=== PATIENT | female | born 1980 | race Caucasian/White ===

== ENCOUNTER → 2017-05-28 10:42 | Outpatient (CLI) | payer OTHER, SELFPAY ==
--- NOTE | 2017-05-28 10:45 | CT_ITS ---
STUDY: CT MAXILLOFACIAL SINUSES REASON FOR EXAM: Female, 36 years old. Sinusitis and right maxillary pain RADIATION DOSAGE (If Supplied By Facility): CTDIvol = ( 33.06 ) mGy, DLP = ( 887.57 ) mGycm TECHNIQUE: The patient was scanned in a multi detector CT scanner. High resolution axial imaging was performed without the administration of intravenous contrast material. Sagittal and coronal images were reconstructed. Individualized dose optimization techniques were used for this CT. COMPARISON: None. FINDINGS: FRONTAL SINUSES: Normal aeration, without mucosal inflammatory disease. ETHMOIDAL SINUSES: Normal aeration, without mucosal inflammatory disease. MAXILLARY SINUSES: Cyst in the inferior right maxillary sinus. Underlying mucocele cannot be excluded. There is focal cortical interruption of the medial upper anterior maxilla as seen on image 61 of series 4. Erosive changes are noted involving the roots of the right maxillary teeth with adjacent lytic/cystic changes of the maxillary alveolus. SPHENOIDAL SINUSES: Normal aeration, without mucosal inflammatory disease. There is patency of the bilateral maxillary infundibuli with normal uncinate processes, ethmoid bullae, and hiatus semilunaris. Normal bilateral middle turbinates. Normal bilateral inferior turbinates. Normal midline nasal septum. There is patency of the bilateral nasal airways. The visualized osseous structures are normal. The visualized bilateral orbital contents are normal. CT/Sinus/Facial Bone IMPRESSION: Right maxillary sinus disease with associated anterior maxillary cortical interruption and lytic/cystic changes of the alveolus and right maxillary tooth roots. Underlying mucocele or dentigerous cystic disease may be present. Electronically Signed: Petar Noble MD at 4:02 EST Tel , Service support ,
== END ==
PROVIDERS: Visit Provider Otolaryngology
DX: J32.0 Chronic maxillary sinusitis (principal); J34.1 Cyst and mucocele of nose and nasal sinus
CPT/HCPCS: 70486

== ENCOUNTER → 2017-09-14 12:19 | Outpatient (CLI) | payer OTHER, SELFPAY ==
--- NOTE | 2017-09-14 | TISS_PTH ---
PATIENT: CASSIUS TAMEZ LOC: [facility] U#:[id number] AGE/SX: 44/F ROOM: RE09/14/[address]: Dr. Alber Patricia DDS : 1980 BED: DIS: SPEC #: [id number] RECD: 09/14/17 11:55 STATUS: AMY CODIE #: [id number] MALLY: 09/14/17 00:[address]: Alber Patricia DEPT: SURGICAL PATHOLOGY RECD BY: Sean Aguirre ENTERED: 09/14/17 13:11 SP TYPE: Tissue Bx OT DR: No Primary Care Phys Tissues: Maxilla, NOS Procedures: Surgery Specimen Level IV HEADER OPERATION: Biopsy right maxillary sinus PRE-OP DIAGNOSIS: Probable odontogenic cyst TISSUE SUBMITTED: Right maxilla MICROSCOPIC DIAGNOSIS Right maxilla, biopsy: Benign cyst lined by respiratory epithelium and adjacent soft tissue and bone with reactive changes. Negative for malignancy. SJ:janina 09/15/17 COMMENT Correlation with clinical, radiologic findings and appropriate follow up are necessary. Please make reference to corresponding cytology ([id number]). Case has been reviewed in consultation with Dr. Cedeno who concurs with the above diagnosis. IDC:AM MICROSCOPIC DESCRIPTION Slides are reviewed. GROSS DESCRIPTION Received in fixative is one container labeled with the patient's name and designated right maxilla. The specimen consists of an irregular piece of cutler-pink soft tissue measuring 1.5 x 1 x 0.2 cm. The entire specimen is submitted in one cassette. / SJ:rg 09/14/17 TC:5 CPT: 67251
--- NOTE | 2017-09-14 | FLU_PTH ---
PATIENT: CASSIUS TAMEZ LOC: [facility] U#:[id number] AGE/SX: 44/F ROOM: RE09/14/[address]: Dr. Alber Patricia DDS : 1980 BED: DIS: SPEC #: [id number] RECD: 09/14/17 11:55 STATUS: AMY MACKAY #: [id number] MALLY: 09/14/17 00:[address]: Alber Patricia DEPT: CYTOLOGY RECD BY: Sean Aguirre ENTERED: 09/14/17 13:13 SP TYPE: Fluid OTHR DR: No Primary Care Phys Tissues: Maxilla, NOS Procedures: Pap Stain (control) Special Stain Group II Surgery Specimen Level IV Cell Block Cytospin Fluid HEADER OPERATION: Right maxillary sinus biopsy PRE-OP DIAGNOSIS: Probable odontogenic cyst TISSUE SUBMITTED: Right maxilla cyst fluid for cytology DIAGNOSIS CYTOLOGY Right maxilla cyst fluid for cytology (cytospin and cell block): Consistent with benign cyst contents. SJ:janina 09/15/17 COMMENT Please make reference to corresponding surgical specimen [id number]. CYTOLOGY STUDY Slides are reviewed. The specimen entirely consists of macrophages. CYTOLOGY GROSS Received is 8 ml of anjana cloudy fluid labeled with the patient's name and and designated per the requisition as right maxilla. Submitted for cytology preparation including cell block. / 09/14/17 TC:5 CPT: 27224, 67677
== END ==
PROVIDERS: Visit Provider Dentist Oral and Maxillofacial Surgery
DX: M27.40 Unspecified cyst of jaw (principal)
CPT/HCPCS: 88108; 88305; 88313

== ENCOUNTER → 2018-01-03 10:27 | Outpatient (CLI) | payer OTHER, SELFPAY ==
[2018-01-03 11:38] LABS: Absolute Lymphocyte Count 1.94 X10^3/ul (0.83-4.51); Absolute Neutrophil Count 2.4 X10^3/uL (2.0-7.7); Basophil# 0.04 X10^3/uL; Basophil% 0.8 % (0-1); Eosinophil# 0.17 X10^3/uL; Eosinophils% 3.5 % (0-5); Hematocrit 41.3 % (37-47); Hemoglobin 14.4 g/dl (12.0-15.0); Lymphocyte # 1.94 X10^3/ul (4.0); Lymphocyte % 39.4 % (19-41); Mean Corp Hgb Conc 34.9 g/gl (32-36); Mean Corpuscular Hgb 32.4 pg (27.0-32.0); Mean Platelet Vol. 9.7 fl (6.2-12.0); Monocyte# 0.36 X10^3/uL; Monocyte% 7.3 % (0-10); Neutrophil % 48.8 % (47-70); Platelet Count 217 K/mm3 (150-450); Red Blood Count 4.44 M/mm3 (4.2-5.4); White Blood Count 4.9 K/mm3 (4.4-11.0)
[2018-01-03 11:41] LABS: POSITIVE COUNT NO; POSITIVE DIFFERENTIAL NO; POSITIVE MORPHOLOGY NO
[2018-01-03 12:16] LABS: hCG Titer Quant., Serum < 1 mIU/mL (<9 non-preg)
[2018-01-03 12:26] LABS: AST(SGOT) 15 U/L (15-37); Alanine Aminotransfer ALT/SGPT 20 U/L (13-56); Cholesterol 151 mg/dL (200); High Density Lipoprotein 70 mg/dL; Triglycerides 75 mg/dL; Very Low Density Lipoprotein 15 mg/dL (5-40)
== END ==
PROVIDERS: Family Provider Internal Medicine; PCP Internal Medicine; Visit Provider Dermatology
DX: L70.0 Acne vulgaris (principal); Z79.899 Other long term (current) drug therapy
CPT/HCPCS: 36415; 80061; 84450; 84460; 84702; 85025

== ENCOUNTER → 2018-02-06 10:07 | Outpatient (CLI) | payer OTHER, SELFPAY ==
[2018-02-06 11:25] LABS: Internal QC Validated? YES +Cl - CLEAR BKGD; Pregnancy, Urine Negative Negative
== END ==
PROVIDERS: Family Provider Internal Medicine; PCP Internal Medicine; Referring Provider Dermatology; Visit Provider Dermatology
DX: Z79.899 Other long term (current) drug therapy (principal)
CPT/HCPCS: 81025

== ENCOUNTER → 2018-03-07 11:00 | Outpatient (CLI) | payer OTHER, SELFPAY ==
[2015-08-12 14:00] VITALS: BMI 22.1
[2018-03-07 11:22] LABS: Internal QC Validated? YES +Cl - CLEAR BKGD; Pregnancy, Urine Negative Negative
== END ==
PROVIDERS: Family Provider Internal Medicine; PCP Internal Medicine; Referring Provider Dermatology; Visit Provider Dermatology
DX: L70.0 Acne vulgaris (principal); L23.3 Allergic contact dermatitis due to drugs in contact with skin; Z79.899 Other long term (current) drug therapy
CPT/HCPCS: 81025

== ENCOUNTER 2018-03-24 12:32 | Day surgery (SDC) | payer OTHER, SELFPAY ==
[2015-08-12 14:00] VITALS: BMI 22.1
[2018-03-24] VITALS (9 sets, daily range): BP systolic 109–125; BP diastolic 76–90; PULSE 67–103; RESP 16–18; TEMP 36.1–37.3; O2SAT 97–100; BMI 24.1
[2018-03-24 12:57] LABS: Internal QC Validated? YES +Cl - CLEAR BKGD; Pregnancy, Urine Negative Negative
[2018-03-24 13:08] LABS: Hematocrit 41.2 % (37-47); Hemoglobin 14.4 g/dl (12.0-15.0); Mean Corpuscular Hgb 32.3 pg (27.0-32.0); Mean Corpuscular Volume 92.4 fL (81-99); Mean Platelet Vol. 9.2 fl (6.2-12.0); Platelet Count 275 K/mm3 (150-450); RBC Distribution Width CV 12.7 % (11.6-14.6); RBC Distribution Width SD 42.4 fl (35.1-43.9); Red Blood Count 4.46 M/mm3 (4.2-5.4); Scan Indicated on CBC? Y/N NO; White Blood Count 5.8 K/mm3 (4.4-11.0)
--- NOTE | 2018-03-24 14:00 | TISS_PTH ---
PATIENT: CASSIUS TAMEZ LOC: [facility] [place] U#:[id number] AGE/SX: 37/F ROOM: RE03/24/[address]: Dr. Alber Patricia DDS : 1980 BED: DIS: 03/24/2018 SPEC #: [id number] RECD: 03/27/18 09:05 STATUS: AMY CODIE #: [id number] MALLY: 03/24/18 14:[address]: Alber Patricia DEPT: SURGICAL PATHOLOGY RECD BY: Brooks Roper ENTERED: 03/27/18 12:49 SP TYPE: Tissue Bx MICHAEL DR: Dr. Rosalva Chand MD Tissues: TISSUE SURGICALLY REMOVED Procedures: Surgery Specimen Level IV HEADER OPERATION: Excision cyst/tumor, maxilla PRE-OP DIAGNOSIS: Benign cyst invading right maxilla TISSUE SUBMITTED: Right maxilla cyst MICROSCOPIC DIAGNOSIS Right maxilla cyst, biopsy: Consistent with benign cyst lined by respiratory epithelium with associated reactive changes and chronic inflammation and bone. SJ:janina 03/28/18 COMMENT Please make reference to previous specimen ([id number]) right maxilla, biopsy with diagnosis of benign cyst lined by respiratory epithelium and adjacent soft tissue and bone with reactive changes. This case is discussed with Dr. Patricia on 03/28/18. Case has been reviewed in consultation with Dr. Cedeno who concurs with the above diagnosis. IDC:AM MICROSCOPIC DESCRIPTION Slides are reviewed. GROSS DESCRIPTION Received in fixative is one container labeled with the patient's name and designated right maxilla cyst. The specimen consists of multiple irregular fragments of dark cutler soft tissue that in aggregate measure 2 x 1.5 x 0.2 cm. The specimen is totally submitted in one cassette. / AM:janina 03/27/18 TC:5 CPT: 94591
[2018-03-24] MEDS: Bupivacaine 0.5% PF 10 ML VIAL (15:05)
--- NOTE | 2018-03-24 16:12 | PCM.OPRPT ---
Problem List (1) Cyst of maxilla Status: Acute Report of Operation Date of Procedure: 03/24/18 Pre-Operative Diagnosis: Right maxillary cyst Post-Operative Diagnosis: Same Surgery/Procedure Performed:: Excision cyst right maxilla Description of Surgical Findings:: The patient was identified in the pre-op hod room and the discussion of the procedure was gone over with her and her . All questions were answered. The patient was taken to the OR and placed into the supine position. All anesthesia monitors were placed and the patient was induced under general anesthesia. She was intubated without complications. The patient was then prepped and drapped in the usual manner for oral/maxillofacial surgery. Lidocaine mixed with arcaine was administered as local anesthesia. A vestibular incision was made through mucosa down to and through periosteum. Using a surgical handpiece bone was removed from the lateral wall of the sinus cavity exposing the cystic lesion in the right maxilla. The destruction of the bone from the cyst went posteriorly about at the level of the first and second molar maybe a little further and superiorly and medially into the maxillary sinus. and anteriorly up to the cuspid tooth. Using rongeurs, bone curretts and rotary instrumentation with care not to destroy the roots of the right maxilla the cystic lesion was debrided from the bone. Copious irrigation with normal saline and closure with 3-0 chromic was done. The throat pack was removed and the oral cavity and hypopharyngeal tissues suctioned free of debri. Bleeding was well controlled and all needle and sponge counts correct. Taken to Post anesthesia recovery in stable condition. Type of Anesthesia:: General Specimen's removed: Cystic tissue right maxilla Drains: none Estimated Blood Loss (mL): 20 cc
[2018-03-24] MEDS: HYDROcodone Bitartrate/Apap 5/325 Tablet PO (18:05)
== END 2018-03-24 18:50 | disposition home or self-care (01) ==
LOC: SDC 12:33 → AC 12:34
PROVIDERS: Family Provider Internal Medicine; PCP Internal Medicine; Referring Provider Dentist Oral and Maxillofacial Surgery; Visit Provider Dentist Oral and Maxillofacial Surgery
PROC: (CPT 21030; principal; 2018-03-24 13:45)
DX: M27.40 Unspecified cyst of jaw (principal); Z79.899 Other long term (current) drug therapy
CPT/HCPCS: 00190; 21030; 81025; 85027; 88305; J7120; J2405

== ENCOUNTER → 2018-04-12 10:10 | Outpatient (CLI) | payer OTHER, SELFPAY ==
[2018-03-24 13:12] VITALS: BMI 24.1
[2018-04-12 11:01] LABS: Internal QC Validated? YES +Cl - CLEAR BKGD; Pregnancy, Urine Negative Negative
== END ==
PROVIDERS: Family Provider Internal Medicine; PCP Internal Medicine; Referring Provider Dermatology; Visit Provider Dermatology
DX: Z79.899 Other long term (current) drug therapy (principal); L70.0 Acne vulgaris; L23.3 Allergic contact dermatitis due to drugs in contact with skin
CPT/HCPCS: 81025

== ENCOUNTER → 2018-05-08 09:40 | Outpatient (CLI) | payer OTHER, SELFPAY ==
[2018-03-24 13:12] VITALS: BMI 24.1
[2018-05-08 12:00] LABS: Pregnancy, Serum, hCG Quali. NEGATIVE Negative (0-9 Nonpreg)
[2018-05-08 12:06] LABS: AST(SGOT) 16 U/L (15-37); Alanine Aminotransfer ALT/SGPT 19 U/L (13-56); Cholesterol 155 mg/dL (200); High Density Lipoprotein 46 mg/dL; Triglycerides 133 mg/dL; Very Low Density Lipoprotein 27 mg/dL (5-40)
--- OUTSIDE RECORDS SUMMARY | 2018-07-10 19:45 | XMS RPT_ITS ---
:1980 Author Organization [place] Support Name Relationship Address Phone MASON BARBOSA Unavailable Unavailable + [place] [address] LUCAS TAMEZ Unavailable [address] + [place] [address] UE Unavailable Unavailable Unavailable MASON BARBOSA Unavailable Unavailable + [place] [address] LUCAS TAMEZ Unavailable [address] + [place] [address] UE Unavailable Unavailable Unavailable MASON BARBOSA Unavailable Unavailable + [place] [address] LUCAS TAMEZ Unavailable [address] + [place] [address] UE Unavailable Unavailable Unavailable MASON BARBOSA Unavailable Unavailable + [place] [address] LUCAS TAMEZ Unavailable [address] + [place] [address] UE Unavailable Unavailable Unavailable MASON BARBOSA Unavailable Unavailable + [place] [address] LUCAS TAMEZ Unavailable [address] + [place] [address] UE Unavailable Unavailable Unavailable MASON BARBOSA Unavailable Unavailable + [place] [address] LUCAS TAMEZ Unavailable [address] + [place] [address] UE Unavailable Unavailable Unavailable MASON BARBOSA Unavailable Unavailable + [place] [address] LUCAS TAMEZ Unavailable [address] + [place] [address] UE Unavailable Unavailable Unavailable FAMILIA, MASON Unavailable . + [place] [address] LUCAS TAMEZ Unavailable [address] + [place] [address] UE Unavailable Unavailable Unavailable Care Team Providers Name Role Phone SULEMA DHALIWAL (GEOCHEMICAL MANAGER) Attending Unavailable GANTA, ROSALVA Attending Unavailable GANTA, ROSALVA Referring Unavailable RYJESS SPENCER ([facility]) Attending Unavailable Freddy, Victor Manuel Attending Unavailable Freddy, Victor Manuel Referring Unavailable Ganta, Rosalva Primary Care Unavailable FreddyVictor Manuel Attending Unavailable Freddy, Victor Manuel Referring Unavailable Ganta, Rosalva Primary Care Unavailable Wartmann, Live Attending Unavailable Wartmann, Live Referring Unavailable Primay Care Physicia, No Primary Care Unavailable Fiorita, Vincent Attending Unavailable Primay Care Physicia, No Primary Care Unavailable Fiorita, Vincent Referring Unavailable Freddy, Victor Manuel Attending Unavailable Freddy, Victor Manuel Referring Unavailable Ganta, Rosalva Primary Care Unavailable Victor Manuel Hayes Attending Unavailable Freddy, Victor Manuel Referring Unavailable Ganta, Rosalva Primary Care Unavailable FreddyVictor Manuel Attending Unavailable Freddy, Victor Manuel Referring Unavailable Ganta, Rosalva Primary Care Unavailable Fiorita, Vincent Attending Unavailable Fiorita, Vincent Referring Unavailable Ganta, Rosalva Primary Care Unavailable PROBLEMS PROBLEMS DATE TYPE CONDITION / CODE ATTENDING STATUS SOURCE 05/08/2018 Unknown Z79.899 - Other Victor Manuel Hayes Active [facility]current[facility] drug Hospital therapy / Repository Z79.899(ICD-10) 03/07/2018 Unknown L70.0 - Acne Victor Manuel Hayes Active [facility] vulgaris / Community L70.0(ICD-10) Hospital Repository 03/07/2018 Unknown L23.3 - Allergic Victor Manuel Hayes Active [facility] contact Community dermatitis due to Hospital drugs in contact Repository with skin / L23.3(ICD-10) 12/08/2017 Active Encounter for NA Active [facility] screening [facility] [place] mammogram for Repository malignant neoplasm of breast / Z12.31(ICD-10) 12/08/2017 Active Family history of NA Active [facility] malignant [facility] [place] neoplasm of Repository breast / Z80.3(ICD-10) PROCEDURES PROCEDURES No Procedure Records FoundRESULTS RESULTS ,SERUM,HCG QUALI. Collected: Status: F Source: [place]ERT 05/08/2018 9:[address] [facility] REPOSITORY TYPE CODE TESTS RESULT OUT OF REFERENCE UNITS RANGE LAB L700.7000 0-9 Nonpreg Negative Normal HCGSQUAL NEGATIVE LAB L700.6700 =>Qualitative mIU/mL Normal HCG Qual < 1 triggr Performed By: #### L700.6800 #### [facility] [address] [place], [address] LIPID PROFILE Collected: 05/08/2018 Status: F Source: ROBERT 9:[address] [facility] REPOSITORY TYPE CODE TESTS RESULT OUT OF RANGE REFERENCE UNITS LAB L501.4900 200 mg/dL Normal CHOL 155 Result Comment: <200 mg/dL Desirable 200-240 mg/dL Borderline >240 mg/dL High Risk LAB L501.5000 mg/dL Normal TRIG 133 Result Comment: The drugs N-Acetylcysteine and Metamizole may falsely depress this assay. Serum Triglycerides Reference Interval Normal <150 mg/dL Borderline high 150 - 199 mg/dL High 200 - 499 mg/dL Very High > or = 500 mg/dL LAB L501.6400 mg/dL Normal HDL 46 Result Comment: The drugs N-Acetylcysteine and Metamizole may falsely depress this assay. Reference Range HDL <40 mg/dL Low HDL Cholesterol HDL >or= 60 mg/dL High HDL Cholesterol LAB L501.6500 0-130 mg/dL Normal LDL 82 LAB L501.6600 5-40 mg/dL Normal VLDL 27 Performed By: #### L500.4100, L501.4100, L501.4405 #### [facility] [address] [place], [address] AST(SGOT) Collected: 05/08/2018 Status: F Source: [place] 9:[address] [facility] REPOSITORY TYPE CODE TESTS RESULT OUT OF RANGE REFERENCE UNITS LAB L501.4100 15-37 U/L Normal AST 16 Performed By: #### L500.4100, L501.4100, L501.4405 #### [facility] [address] [place], [address] ALANINE AMINOTRANSFERAS Collected: 05/08/2018 Status: F Source: ROBERT (SGPT) 9:[address] [facility] REPOSITORY TYPE CODE TESTS RESULT OUT OF RANGE REFERENCE UNITS LAB L501.4405 13-56 U/L Normal ALT 19 Performed By: #### L500.4100, L501.4100, L501.4405 #### [facility] [address] [facility] [place], [address] ,URINE Collected: 04/12/2018 Status: F Source: ROBERT 10:[address] [facility] REPOSITORY TYPE CODE TESTS RESULT OUT OF REFERENCE UNITS RANGE LAB L400.8000 Negative Normal HCGUQUAL Negative Result Comment: Very dilute urine specimens, as indicated by a low specific gravity, may not contain termite control service representative levels of hCG. If is still suspected, a first morning urine specimen should be collected 48 hours later and tested. Performed By: #### L400.7600 #### [facility] [address] [facility] [place], [address] OPERATIVE REPORT Observed: 03/24/2018 Status: F Source: ROBERT 4:[address] [facility] REPOSITORY [facility] Medical Records Department [address] [place] [address] Operative Report 03/24/18 1612 MR#: [id number] Acct: [id number] Name: CATHERINE TAMEZ Rep #: [id number] : 1980 37 From: Alber Patricia DDS PCP: Rosalva Ordoñez MD Status: [facility] Location: [place] [address] Problem List (1) Cyst of maxilla Status: Acute Report of Operation Date of Procedure: 03/24/18 Pre-Operative Diagnosis: Right maxillary cyst Post-Operative Diagnosis: Same Surgery/Procedure Performed:: Excision cyst right maxilla Description of Surgical Findings:: The patient was identified in the pre-op hod room and the discussion of the procedure was gone over with her and her . All questions were answered. The patient was taken to the OR and placed into the supine position. All anesthesia monitors were placed and the patient was induced under general anesthesia. She was intubated without complications. The patient was then prepped and drapped in the usual manner for oral/maxillofacial surgery. Lidocaine mixed with arcaine was administered as local anesthesia. A vestibular incision was made through mucosa down to and through periosteum. Using a surgical handpiece bone was removed from the lateral wall of the sinus cavity exposing the cystic lesion in the right maxilla. The destruction of the bone from the cyst went posteriorly about at the level of the first and second molar maybe a little further and superiorly and medially into the maxillary sinus. and anteriorly up to the cuspid tooth. Using rongeurs, bone curretts and rotary instrumentation with care not to destroy the roots of the right maxilla the cystic lesion was debrided from the bone. Copious irrigation with normal saline and closure with 3-0 chromic was done. The throat pack was removed and the oral cavity and hypopharyngeal tissues suctioned free of debri. Bleeding was well controlled and all needle and sponge counts correct. Taken to Post anesthesia recovery in stable condition. Type of Anesthesia:: General Specimen's removed: Cystic tissue right maxilla Drains: none Estimated Blood Loss (mL): 20 cc 03/24/18 1625 <Electronically signed by Alber Patricia DDS> Date Alber Patricia DDS CC: Rosalva Ordoñez MD; Alber Patricia DDS Signed TISSUE BIOPSY Observed: 03/24/2018 Status: F Source: ROBERT 2:[address] [facility] REPOSITORY Patient: CATHERINE TAMEZ : 1980 (37/F) Acct Num: [id number] Phys: Alber Patricia DDS Unit Num: [id number] Loc: [facility] Specimen: [id number] Received: 03/27/18904 Spec Type: Tissue Bx TISSUES 1 TISSUES: TISSUE SURGICALLY REMOVED COMMENT Please make reference to previous specimen ([id number]) right maxilla, biopsy with diagnosis of benign cyst lined by respiratory epithelium and adjacent soft tissue and bone with reactive changes. This case is discussed with Dr. Patricia on 03/28/18. Case has been reviewed in consultation with Dr. Cedeno who concurs with the above diagnosis. IDC:AM GROSS DESCRIPTION Received in fixative is one container labeled with the patient's name and designated right maxilla cyst. The specimen consists of multiple irregular fragments of dark cutler soft tissue that in aggregate measure 2 x 1.5 x 0.2 cm. The specimen is totally submitted in one cassette. / AM:janina 03/27/18 TC:5 CPT: 68034 HEADER OPERATION: Excision cyst/tumor, maxilla PRE-OP DIAGNOSIS: Benign cyst invading right maxilla TISSUE SUBMITTED: Right maxilla cyst MICROSCOPIC DESCRIPTION Slides are reviewed. MICROSCOPIC DIAGNOSIS Right maxilla cyst, biopsy: Consistent with benign cyst lined by respiratory epithelium with associated reactive changes and chronic inflammation and bone. SJ:janina 03/28/18 Signed Pedro Jon 03/28/18 <signature on file> Performed By: #### PTISS #### [facility] [address] [facility] [place], [place], [address] ,URINE Collected: 03/24/2018 Status: F Source: [place] 12:[address] [facility] REPOSITORY Order Comment: Reason for Laboratory Test PREOP TYPE CODE TESTS RESULT OUT OF REFERENCE UNITS RANGE LAB L400.8000 Negative Normal HCGUQUAL Negative Result Comment: Very dilute urine specimens, as indicated by a low specific gravity, may not contain termite control service representative levels of hCG. If is still suspected, a first morning urine specimen should be collected 48 hours later and tested. Performed By: #### L400.7600 #### [facility] [address] [place], [address] CBC-COMPLETE BLOOD CNT Collected: 03/24/2018 Status: F Source: [place] NO DIFF 12:[address] [facility] REPOSITORY Order Comment: Reason for Laboratory Test PREOP TYPE CODE TESTS RESULT OUT OF RANGE REFERENCE UNITS LAB L100.1000 4.4-11.0 K/mm3 Normal WBC 5.8 LAB L100.1200 4.2-5.4 M/mm3 Normal RBC 4.46 LAB L100.1300 12.0-15.0 g/dl Normal HGB 14.4 LAB L100.1400 37-47 % Normal HCT 41.2 LAB L100.1500 81-99 fL Normal MCV 92.4 LAB L100.1600 27.0-32.0 pg High MCH 32.3 LAB L100.1700 32-36 g/gl Normal MCHC 35.0 LAB L100.1810 11.6-14.6 % Normal RDW CV 12.7 LAB L100.1820 35.1-43.9 fl Normal RDW SD 42.4 LAB L100.1900 150-450 K/mm3 Normal PLT 275 LAB L100.2000 6.2-12.0 fl Normal MPV 9.2 Performed By: #### L100.0500 #### [facility] [address] [facility] [place], [address] ,URINE Collected: 03/07/2018 Status: F Source: [place] 11:[address] [facility] REPOSITORY TYPE CODE TESTS RESULT OUT OF REFERENCE UNITS RANGE LAB L400.8000 Negative Normal HCGUQUAL Negative Result Comment: Very dilute urine specimens, as indicated by a low specific gravity, may not contain termite control service representative levels of hCG. If is still suspected, a first morning urine specimen should be collected 48 hours later and tested. Performed By: #### L400.7600 #### [facility] [address] [facility] [place], [place], [address] Observed: 02/10/2018 Status: F Source: [place] BACT/CAND VAG GRM ST 10:15 AM [facility] REPOSITORY Sp. Request/Comment: - Swab Smear Result - BACTERIAL VAGINOSIS RESULT: Stain results consistent with normal vaginal willem. Moderate --> ABNORMAL ALERT Yeast --> ABNORMAL ALERT Few Polymorphonuclear leukocytes Performed By: #### BVCNSM #### [facility] [address] [place], [place] [address] PROGRESS Observed: 02/10/2018 Status: COMPLETED Source: [place] 9:42 AM [facility] REPOSITORY HNO ID: [id number] Author: Jess De La O) Ry Service: (none) Author Type: Nurse Practitioner Type: Progress Notes Filed: 02/10/2018 12:12 PM Note Text: Catherine Tamez is a 37 year old female who presents for vaginal pruritis and discharge for 2 week(s) off and on. She had some left of Diflucan that she use and seem to get better but then started up again and took another Diflucan then yesterday she started with the symptoms again Vaginal discharge: moderate amount, thick and white. Itching: YES Dyspareunia: YES Fever/chills: No Abdominal pain: No Bladder: Negative for dysuria or frequency Bowel: No blood in stool, pain with BM, tarry stool, persistent diarrhea or constipation Any new sexual partners or concern for STD exposure: No Any history of STDs: None Does your partner have any new complaints: No Are you currently taking any medications to treat vaginitis: Yes, Tried Diflucan Do you use feminine sprays, douches or deodorants: No Past medical, surgical, social history, medications and allergies reviewed and updated. OBJECTIVE: Wt 150 lb 9.6 oz (68.3kg) LMP 01/18/2018 GENERAL: Well developed, well nourished in no apparent distress ABDOMEN: soft, non-tender and no masses PELVIC: external genitalia normal, normal Bartholin's glands, urethra, [place]'s glands, no vulvar lesions, no cervical lesions, good vaginal support, normal appearing perineal body and perianal region, well estrogenized, abnormal discharge white yeast like +vaginal opening and wall are red and inflamed in appearance. BIMANUAL: uterus normal size, shape and consistency, no adnexal masses, non-tender and no cervical motion tenderness. RECTOVAGINAL: deferred. ASSESSMENT/PLAN: Christina Office Visit on 02/10/18 -isotretinoin (ACCUTANE ORAL) STD screening: Declined STD check. Any new medications given to the patient have been explained as to directions, reasons for prescribing and side effects. Perineal hygeine and safe sex were discussed with the patient. B/O BV-negative BVC sent Diflucan sent Will call if s/s are not resolving Jess Raza APRN.GEOCHEMICAL MANAGER CNOV Observed: 02/10/2018 Status: COMPLETED Source: [place] 9:30 AM [facility] REPOSITORY Office Visit (WOOB) CATHERINE TAMEZ ([id number]) 1980 F Date Time Provider Department 02/10/18 9:30 AM JESS RAZA ([facility]) WOOB During your visit today, we recorded the following information about you: Blood pressure Weight Last Period 100/60 68.3 kg 01/18/18 Jess Raza APRN.CNP 02/10/2018 12:12 PM Signed Catherine Tamez is a 37 year old female who presents for vaginal pruritis and discharge for 2 week(s) off and on. She had some left of Diflucan that she use and seem to get better but then started up again and took another Diflucan then yesterday she started with the symptoms again Vaginal discharge: moderate amount, thick and white. Itching: YES Dyspareunia: YES Fever/chills: No Abdominal pain: No Bladder: Negative for dysuria or frequency Bowel: No blood in stool, pain with BM, tarry stool, persistent diarrhea or constipation Any new sexual partners or concern for STD exposure: No Any history of STDs: None Does your partner have any new complaints: No Are you currently taking any medications to treat vaginitis: Yes, Tried Diflucan Do you use feminine sprays, douches or deodorants: No Past medical, surgical, social history, medications and allergies reviewed and updated. OBJECTIVE: Wt 150 lb 9.6 oz (68.3kg) LMP 01/18/2018 GENERAL: Well developed, well nourished in no apparent distress ABDOMEN: soft, non-tender and no masses PELVIC: external genitalia normal, normal Bartholin's glands, urethra, [place]'s glands, no vulvar lesions, no cervical lesions, good vaginal support, normal appearing perineal body and perianal region, well estrogenized, abnormal discharge white yeast like +vaginal opening and wall are red and inflamed in appearance. BIMANUAL: uterus normal size, shape and consistency, no adnexal masses, non-tender and no cervical motion tenderness. RECTOVAGINAL: deferred. ASSESSMENT/PLAN: Christina Office Visit on 02/10/18 -isotretinoin (ACCUTANE ORAL) STD screening: Declined STD check. Any new medications given to the patient have been explained as to directions, reasons for prescribing and side effects. Perineal hygeine and safe sex were discussed with the patient. B/O BV-negative BVC sent Diflucan sent Will call if s/s are not resolving Jess Raza APRN.GEOCHEMICAL MANAGER Referring Provider: SELF [200] Allergies As of Date: 02/10/2018 (No Known Allergies) Date Reviewed: 02/10/2018 Reviewed by: Iza Curry LPN - Fully Assessed Reason for Visit: vaginitis [Other] Primary Visit Diagnosis:Vaginal irritation [N89.8] Order(s):RAPID BV B/O [8578568] Order #: [id number] BACT/CHRISTINA VAG GRAM STAIN [SQBVCNSM] Order #: [id number] FUTURE fluconazole (DIFLUCAN) 150 mg tabletTake 1 tablet by mouth one time only for 1 dose. Then repeat in 72 hours.Disp: 2 tabletRfl: 0 Prescriptions as of 02/10/2018 Sig: ACCUTANE ORAL Take by mouth once daily. 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 History of maternal third degree perineal lacer*INVALID FOR*08/22/2015 More... History of anesthesia complications [Z87.898] INVALID FOR*08/22/2015 More... Rubella non-immune status [Z78.9] INVALID FOR*08/22/2015 Supervision of other normal [Z34.80] INVALID FOR*08/22/2015 More... Prescriptions ordered this encounter Disp Refills Start End FLUCONAZOLE 150 MG TABLET 2 ta* 0 02/10/2018 02/10/2018 Route: ORAL Sig: Take 1 tablet by mouth one time only for 1 dose. Then repeat in 72 hours. Medications Discontinued During This Encounter Drospirenone-Ethinyl Estradiol (EFREN * 3 Pa* 0 08/19/2017 02/10/2018 Route: ORAL Sig: Take 1 tablet by mouth once daily. Patient not taking: Reported on 02/10/2018 Disc: Reason for discontinue is not on file. traMADol (ULTRAM) 50 mg tablet 20 t* 0 04/29/2016 02/10/2018 Class: Call Rx Route: ORAL Sig: Take 1 tablet by mouth every 8 hours as needed. Patient not taking: Reported on 02/10/2018 Disc: Reason for discontinue is not on file. Encounter Status:Closed by JESS RAZA on 02/10/18 ,URINE Collected: 02/06/2018 Status: F Source: [place] 10:[address] [facility] REPOSITORY Order Comment: Date of Last Menstrual Period? 01/27/18 TYPE CODE TESTS RESULT OUT OF REFERENCE UNITS RANGE LAB L400.8000 Negative Normal HCGUQUAL Negative Result Comment: Very dilute urine specimens, as indicated by a low specific gravity, may not contain termite control service representative levels of hCG. If is still suspected, a first morning urine specimen should be collected 48 hours later and tested. Performed By: #### L400.7600 #### [facility] [address] [place], [place] [address], [address] CBC W/DIFF, AUTOMATED Collected: 01/03/2018 Status: F Source: [place] 10:[address] [facility] REPOSITORY TYPE CODE TESTS RESULT OUT OF RANGE REFERENCE UNITS LAB L100.1000 4.4-11.0 K/mm3 Normal WBC 4.9 LAB L100.1200 4.2-5.4 M/mm3 Normal RBC 4.44 LAB L100.1300 12.0-15.0 g/dl Normal HGB 14.4 LAB L100.1400 37-47 % Normal HCT 41.3 LAB L100.1500 81-99 fL Normal MCV 93.0 LAB L100.1600 27.0-32.0 pg High MCH 32.4 LAB L100.1700 32-36 g/gl Normal MCHC 34.9 LAB L100.1810 11.6-14.6 % Normal RDW CV 13.0 LAB L100.1820 35.1-43.9 fl Normal RDW SD 43.0 LAB L100.1900 150-450 K/mm3 Normal PLT 217 LAB L100.2000 6.2-12.0 fl Normal MPV 9.7 LAB L100.2100 47-70 % Normal NEUT% 48.8 LAB L100.2200 19-41 % Normal LY% 39.4 LAB L100.2300 0-10 % Normal MONO% 7.3 LAB L100.2400 0-5 % Normal EO% 3.5 LAB L100.2500 0-1 % Normal BASO% 0.8 LAB L100.2550 0.0-0.9 % Normal IM GRAN % 0.200 Result Comment: IG% - Immature Granulocytes (promyelocytes, myelocytes and metamyelocytes) > 1% indicates that a LEFT SHIFT is Present. LAB L100.2620 2.0-7.7 X10 3/uL Normal Absolute Neut 2.4 LAB L100.2720 0.83-4.51 X10 3/ul Normal Absolute Lymph 1.94 Performed By: #### L100.0100 #### [facility] [address] [place], [address] HCG TITER QUANT., Collected: 01/03/2018 Status: F Source: [place] SERUM 10:[address] [facility] REPOSITORY TYPE CODE TESTS RESULT OUT OF RANGE REFERENCE UNITS LAB L700.8000 <9 non-preg mIU/mL Normal HCG < 1 QUANT. Performed By: #### L700.8000 #### [facility] [address] [place], [address] LIPID PROFILE Collected: 01/03/2018 Status: F Source: [place] 10:[address] [facility] REPOSITORY TYPE CODE TESTS RESULT OUT OF RANGE REFERENCE UNITS LAB L501.4900 200 mg/dL Normal CHOL 151 Result Comment: <200 mg/dL Desirable 200-240 mg/dL Borderline >240 mg/dL High Risk LAB L501.5000 mg/dL Normal TRIG 75 Result Comment: The drugs N-Acetylcysteine and Metamizole may falsely depress this assay. Serum Triglycerides Reference Interval Normal <150 mg/dL Borderline high 150 - 199 mg/dL High 200 - 499 mg/dL Very High > or = 500 mg/dL LAB L501.6400 mg/dL Normal HDL 70 Result Comment: The drugs N-Acetylcysteine and Metamizole may falsely depress this assay. Reference Range HDL <40 mg/dL Low HDL Cholesterol HDL >or= 60 mg/dL High HDL Cholesterol LAB L501.6500 0-130 mg/dL Normal LDL 66 LAB L501.6600 5-40 mg/dL Normal VLDL 15 Performed By: #### L500.4100, L501.4100, L501.4405 #### [facility] [address] [place], [address] AST(SGOT) Collected: 01/03/2018 Status: F Source: [place] 10:[address] [facility] REPOSITORY TYPE CODE TESTS RESULT OUT OF RANGE REFERENCE UNITS LAB L501.4100 15-37 U/L Normal AST 15 Performed By: #### L500.4100, L501.4100, L501.4405 #### [facility] [address] [place], [address] ALANINE AMINOTRANSFERAS Collected: 01/03/2018 Status: F Source: [place] (SGPT) 10:[address] [facility] REPOSITORY TYPE CODE TESTS RESULT OUT OF RANGE REFERENCE UNITS LAB L501.4405 13-56 U/L Normal ALT 20 Performed By: #### L500.4100, L501.4100, L501.4405 #### [facility] [address] [place], [address] CNCO Observed: 12/08/2017 Status: COMPLETED Source: [place] 11:33 AM [facility] REPOSITORY HNO ID: [id number] Author: Mammography Coordinator Service: (none) Author Type: Physician Type: Letter Filed: 12/12/2017 11:31 PM Note Text: December 08, 2017 PID: [id number] Catherine Tamez [address] [place] [address] Dear Ms. Tamez, We are pleased to inform you that the results of your recent breast imaging exam on 12/08/2017 are normal. Your mammogram demonstrates that you have dense breast tissue, which could hide abnormalities. Dense breast tissue, in and of itself, is a relatively common condition. Therefore, this information is not provided to cause undue concern; rather, it is to raise your awareness and promote discussion with your health care provider regarding the presence of dense breast tissue in addition to other risk factors. Early detection of cancer is very important. We also understand recommendations regarding breast cancer screening are controversial. Please discuss with your primary care provider which strategy is best for you and whether a mammogram is right for you. Your imaging studies and report will be kept on file at [facility] as part of your permanent medical record and are available for your continuing care. Thank you for allowing us to help in meeting your health care needs. Sincerely, Dr. Eric Interpreting Radiologist [facility] (Normal over 40) [facility] SCREENING Observed: 12/08/2017 Status: F Source: [place] 11:21 AM [facility] REPOSITORY * * *Final Report* * * DATE OF EXAM: Dec 08 2017 11:21AM [facility] [id number] - [facility] SCREENING / PROCEDURE REASON: multiple diagnoses * * * * Physician Interpretation * * * * RESULT: #[id number] - [facility] SCREENING BILATERAL DIGITAL SCREENING MAMMOGRAM WITH CAD: 12/08/2017 HISTORY: Screening Mammogram - patient reports NO breast symptoms /baseline mammogram. RESULT: TECHNIQUE: The study was acquired using full field digital technology and interpreted from soft copy. Current study was also evaluated with a Computer Aided Detection (CAD). There are no prior films available for comparison. This is considered a new baseline examination. The tissue of both breasts is heterogeneously dense. This may lower the sensitivity of mammography. No significant masses, calcifications, or other findings are seen in either breast. IMPRESSION: NEGATIVE There is no mammographic evidence of malignancy.A 1 year screening mammogram is recommended. The exam was reviewed by a staff physician. kristina Laureano M.D./edilberto:12/08/2017 11:33:17 Sample Tailor: Sherry Weaver RT(R)(M), [facility] letter sent: Normal over 40 Mammogram BI-RADS: 1 Negative Patient Care Nursing Assistant: Edilberto Transcribe Date/Time: Dec 08 2017 10:44A Dictated by: RILEY CALERO MD This examination was interpreted and the report reviewed and electronically signed by: PENELOPE ERIC MD on Dec 08 2017 11:33AM EST [id number] PROGRESS Observed: 12/08/2017 Status: COMPLETED Source: [place] 11:02 AM [facility] REPOSITORY HNO ID: [id number] Author: Payton Ferrara-Owen Rt Service: (none) Author Type: (none) Type: Progress Notes Filed: 12/08/2017 11:02 AM Note Text: Radiology Service Progress Note PATIENT NAME: Catherine Tamez DATE OF SERVICE: December 08, 2017 TIME: 11:02 AM PATIENT IDENTITY VERIFICATION COMPLETED USING TWO (2) METHODS: Patient confirmed name verbally and Date of . PATIENT GENDER DATA: Female. status: : No status: NO. PATIENT RELEVANT IMPLANT DATA REVIEWED: Not Applicable RADIOLOGY DEPARTMENT: [facility] DATA: Not applicable SIGNED BY: Payton Franklin Rt December 08, 2017 11:02 AM PROGRESS Observed: 10/31/2017 Status: COMPLETED Source: [place] 10:19 AM [facility] REPOSITORY O ID: [id number] Author: Rosalva Ordoñez Service: (none) Author Type: Physician Type: Progress Notes Filed: 10/31/2017 1:57 PM Note Text: Reason for Visit Patient presents with: Establish Care: establish care Catherine Tamez is a 36 year old female who presents here today for CPE. Health Maintenance DTAP,TDAP,TD(1 - Tdap) HPV EVERY 5 YEARS HPI Mother had breast cancer at the age of 47, she needs a mammogram done now. Hip pain: she has hip pain in the right, notes that she runs for exercise. Close to a year she noted that sometime when she runs her hip gives off and she falls to the floor, of late this has resolved, she is not sure how. Right now she does not have pain so she does not want this investigated right now. No problem-specific Assessment AND Plan notes found for this encounter. PAST MEDICAL HISTORY Diagnosis Date - Complication of anesthesia FELT LIKE SHE WAS LIGHTHEADED AFTER EPIDURAL PAST SURGICAL HISTORY Procedure Laterality Date - EAR SURGERY HX 07/2015 - OPEN RX CARPAL FX 2003 Both Wrists - ORAL SURGERY PROCEDURE oral cyst biopsy FAMILY HISTORY Problem Relation Age of Onset - Breast Cancer Mother Diagnosed at 47-48 - Lipids Mother - Hypertension Mother - Diabetes Mother - Colon Cancer Father approx age 56 - Heart Maternal Grandfather - Hypertension Maternal Grandfather - Diabetes Maternal Grandfather - Cancer Maternal Grandmother BRAIN - Heart Paternal Grandfather Social History Substance Use Topics - Smoking status: Never Smoker - Smokeless tobacco: Never Used - Alcohol use No Past medical history, appointments, medications, allergies reviewed. Pertinent Lab/Diagnostic Studies are reviewed and discussed today Current Outpatient Prescriptions: - Drospirenone-Ethinyl Estradiol (EFREN 28) 3-0.02 mg per tablet - traMADol (ULTRAM) 50 mg tablet Review of Systems CONSTITUTIONAL: No fevers, chills, nightsweats, unintended weight loss HEENT: Denies frequent or severe heaches, nasal congestion/sinus symptoms, problematic allergy problems. EYES: No diplopia or blurry vision. CARDIOVASCULAR: No chest pain, dyspnea, palpitations, orthopnea, PND, ankle edema. PULM: No dyspnea, unexplained cough. GI: No dysphagia/odynophagia, problematic reflux, constipation, diarrhea, changes in stool habits, hematochezia, melena. : No new urinary complaints, including dysuria, gross hematuria or pyuria. NEURO: No new balance problems, peripheral weakness/paresthesias or numbness of concern. MUSC-SKEL: No new joint pain, swelling, or erythema. PSY: No concerns regarding depression, anxiety or panic. INTEGUMENTARY: No new skin changes (rash, new or changing mole, new growth) Physical Exam BP 126/68 (BP Site: Left Arm, BP Position: Sitting, BP Cuff Size: Regular Adult) Pulse 76 Resp 12 Ht 170.2 cm (5' 7) Wt 67.1 kg (148 lb) LMP 10/31/2017 SpO2 100% BMI 23.18 kg/m? General appearance: Well appearing, alert, in no acute distress, well-hydrated, well nourished. Skin: Skin color, texture, turgor normal, no suspicious rashes or lesions Head: Normocephalic, no masses, lesions, tenderness or abnormalities Eyes: Anicteric sclera. Pupils are equally round and reactive to light. Extraocular movements are intact. Ears: External ears normal, canals clear Nose/Sinuses: Nares normal, septum midline, mucosa normal, no drainage or sinus tenderness Oropharynx: Lips, mucosa, and tongue normal, teeth and gums normal, oropharynx normal Neck: Supple, no adenopathy; thyroid symmetric, normal size, no bruits Back: Normal exam Lungs: Lungs clear to auscultation. No wheezing, rhonchi, rales Heart: RRR without murmur, gallop, or rubs. No ectopy Abdomen: Normal abdominal exam, Abdomen soft, non-tender. Bowel sounds normal. No masses, organomegaly Extremities: No deformities, edema, skin discoloration, clubbing or cyanosis. Good capillary refill. Musculoskeletal: No joint swelling, deformity, or tenderness Peripheral pulses: Normal Neuro: Gait normal. Reflexes normal and symmetric. Sensation grossly intact. ASSESSMENT/PLAN: 1. Annual physical exam - ICD9: V70.0, ICD10: Z00.00 (primary diagnosis) - Encouraged monthly Breast Self Exam - Follow up for annual exam in one year. - LIPID PANEL BASIC - BASIC METABOLIC PNL 2. Encounter for screening mammogram for breast cancer - ICD9: V76.12, ICD10: Z12.31 - Encouraged monthly BSE - Follow up for annual exam in one year. - BRIANNA SCREENING 3. Family history of breast cancer - ICD9: V16.3, ICD10: Z80.3 - BRIANNA SCREENING ROSALVA ORDOÑEZ MD CNOV Observed: 10/31/2017 Status: COMPLETED Source: [place] 9:40 AM [facility] REPOSITORY Office Visit (INTMWS) CATHERINE TAMEZ ([id number]) 1980 F Date Time Provider Department 10/31/17 9:40 AM ROSALVA ORDOÑEZ INTMWS During your visit today, we recorded the following information about you: Pulse Respiration Blood pressure Weight 76/minute 12/minute 126/68 67.1 kg Height Last Period 1.702 m 10/31/17 ROSALVA ORDOÑEZ MD 10/31/2017 1:57 PM Signed Reason for Visit Patient presents with: Establish Care: establish care Catherine Tamez is a 36 year old female who presents here today for CPE. Health Maintenance DTAP,TDAP,TD(1 - Tdap) HPV EVERY 5 YEARS HPI Mother had breast cancer at the age of 47, she needs a mammogram done now. Hip pain: she has hip pain in the right, notes that she runs for exercise. Close to a year she noted that sometime when she runs her hip gives off and she falls to the floor, of late this has resolved, she is not sure how. Right now she does not have pain so she does not want this investigated right now. No problem-specific Assessment AND Plan notes found for this encounter. PAST MEDICAL HISTORY Diagnosis Date - Complication of anesthesia FELT LIKE SHE WAS LIGHTHEADED AFTER EPIDURAL PAST SURGICAL HISTORY Procedure Laterality Date - EAR SURGERY HX 07/2015 - OPEN RX CARPAL FX 2003 Both Wrists - ORAL SURGERY PROCEDURE oral cyst biopsy FAMILY HISTORY Problem Relation Age of Onset - Breast Cancer Mother Diagnosed at 47-48 - Lipids Mother - Hypertension Mother - Diabetes Mother - Colon Cancer Father approx age 56 - Heart Maternal Grandfather - Hypertension Maternal Grandfather - Diabetes Maternal Grandfather - Cancer Maternal Grandmother BRAIN - Heart Paternal Grandfather Social History Substance Use Topics - Smoking status: Never Smoker - Smokeless tobacco: Never Used - Alcohol use No Past medical history, appointments, medications, allergies reviewed. Pertinent Lab/Diagnostic Studies are reviewed and discussed today Current Outpatient Prescriptions: - Drospirenone-Ethinyl Estradiol (EFREN 28) 3-0.02 mg per tablet - traMADol (ULTRAM) 50 mg tablet Review of Systems CONSTITUTIONAL: No fevers, chills, nightsweats, unintended weight loss HEENT: Denies frequent or severe heaches, nasal congestion/sinus symptoms, problematic allergy problems. EYES: No diplopia or blurry vision. CARDIOVASCULAR: No chest pain, dyspnea, palpitations, orthopnea, PND, ankle edema. PULM: No dyspnea, unexplained cough. GI: No dysphagia/odynophagia, problematic reflux, constipation, diarrhea, changes in stool habits, hematochezia, melena. : No new urinary complaints, including dysuria, gross hematuria or pyuria. NEURO: No new balance problems, peripheral weakness/paresthesias or numbness of concern. MUSC-SKEL: No new joint pain, swelling, or erythema. PSY: No concerns regarding depression, anxiety or panic. INTEGUMENTARY: No new skin changes (rash, new or changing mole, new growth) Physical Exam BP 126/68 (BP Site: Left Arm, BP Position: Sitting, BP Cuff Size: Regular Adult) Pulse 76 Resp 12 Ht 170.2 cm (5' 7) Wt 67.1 kg (148 lb) LMP 10/31/2017 SpO2 100% BMI 23.18 kg/m? General appearance: Well appearing, alert, in no acute distress, well-hydrated, well nourished. Skin: Skin color, texture, turgor normal, no suspicious rashes or lesions Head: Normocephalic, no masses, lesions, tenderness or abnormalities Eyes: Anicteric sclera. Pupils are equally round and reactive to light. Extraocular movements are intact. Ears: External ears normal, canals clear Nose/Sinuses: Nares normal, septum midline, mucosa normal, no drainage or sinus tenderness Oropharynx: Lips, mucosa, and tongue normal, teeth and gums normal, oropharynx normal Neck: Supple, no adenopathy; thyroid symmetric, normal size, no bruits Back: Normal exam Lungs: Lungs clear to auscultation. No wheezing, rhonchi, rales Heart: RRR without murmur, gallop, or rubs. No ectopy Abdomen: Normal abdominal exam, Abdomen soft, non-tender. Bowel sounds normal. No masses, organomegaly Extremities: No deformities, edema, skin discoloration, clubbing or cyanosis. Good capillary refill. Musculoskeletal: No joint swelling, deformity, or tenderness Peripheral pulses: Normal Neuro: Gait normal. Reflexes normal and symmetric. Sensation grossly intact. ASSESSMENT/PLAN: 1. Annual physical exam - ICD9: V70.0, ICD10: Z00.00 (primary diagnosis) - Encouraged monthly Breast Self Exam - Follow up for annual exam in one year. - LIPID PANEL BASIC - BASIC METABOLIC PNL 2. Encounter for screening mammogram for breast cancer - ICD9: V76.12, ICD10: Z12.31 - Encouraged monthly BSE - Follow up for annual exam in one year. - BRIANNA SCREENING 3. Family history of breast cancer - ICD9: V16.3, ICD10: Z80.3 - BRIANNA SCREENING ROSALVA ORDOÑEZ MD Referring Provider: SELF [200] Allergies As of Date: 10/31/2017 (No Known Allergies) Date Reviewed: 10/31/2017 Reviewed by: Vicki Kumar LPN - Fully Assessed Reason for Visit: Establish Care [42] Cmt: establish care Primary Visit Diagnosis:Annual physical exam [Z00.00] Other Visit Diagnoses:Encounter for screening mammogram for breast cancer [Z12.31] Family history of breast cancer [Z80.3] Order(s):BRIANNA SCREENING [[id number]] Order #: [id number] FUTURE LIPID PANEL BASIC [SQLIPB] Order #: [id number] FUTURE BASIC METABOLIC PNL [SQBMP] Order #: [id number] FUTURE Prescriptions as of 10/31/2017 Sig: DROSPIRENONE-ETHINYL ESTRADIO* Take 1 tablet by mouth once d* TRAMADOL 50 MG TABLET Take 1 tablet by mouth every * Problem List As Of Date 10/31/2017 Noted Resolved SUPERVIS NORMAL 1ST PREG [Z34.00] INVALID FOR*06/09/2007 Disruption of Perineal Wound, [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 History of maternal third degree perineal lacer*INVALID FOR*08/22/2015 More... History of anesthesia complications [Z87.898] INVALID FOR*08/22/2015 More... Rubella non-immune status [Z78.9] INVALID FOR*08/22/2015 Supervision of other normal [Z34.80] INVALID FOR*08/22/2015 More... Encounter Status:Closed by ROSALVA ORDOÑEZ MD on 10/31/17 TISSUE BIOPSY Observed: 09/14/2017 Status: F Source: [place] 12:[address] [facility] REPOSITORY Patient: CATHERINE TAMEZ : 1980 (36/F) Acct Num: [id number] [facility]: [id number] Loc: LABSPEC Specimen: [id number] Received: 09/14/17 - 1155 Spec Type: Tissue Bx TISSUES TISSUES: Maxilla, NOS COMMENT Correlation with clinical, radiologic findings and appropriate follow up are necessary. Please make reference to corresponding cytology ([id number]). Case has been reviewed in consultation with Dr. Cedeno who concurs with the above diagnosis. IDC:AM GROSS DESCRIPTION Received in fixative is one container labeled with the patient's name and designated right maxilla. The specimen consists of an irregular piece of cutler- pink soft tissue measuring 1.5 x 1 x 0.2 cm. The entire specimen is submitted in one cassette. / SJ:janina 09/14/17 TC:5 CPT: 38727 HEADER OPERATION: Biopsy right maxillary sinus PRE-OP DIAGNOSIS: Probable odontogenic cyst TISSUE SUBMITTED: Right maxilla MICROSCOPIC DESCRIPTION Slides are reviewed. MICROSCOPIC DIAGNOSIS Right maxilla, biopsy: Benign cyst lined by respiratory epithelium and adjacent soft tissue and bone with reactive changes. Negative for malignancy. SJ:janina 09/15/17 Signed Pedro Dontrell 09/15/17 <signature on file> Performed By: #### PTISS #### [facility] [address] [place], [place], [address] FLUID/WASHING Observed: 09/14/2017 Status: F Source: [place] 12:[address] [facility] REPOSITORY Patient: CATHERINE TAMEZ : 1980 (36/F) Acct Num: [id number] [facility]: [id number] Loc: LABSPEC Specimen: [id number] Received: 09/14/17 - 1155 Spec Type: Fluid TISSUES TISSUES: Maxilla, NOS COMMENT Please make reference to corresponding surgical specimen [id number]. CYTOLOGY GROSS Received is 8 ml of anjana cloudy fluid labeled with the patient's name and and designated per the requisition as right maxilla. Submitted for cytology preparation including cell block. / 09/14/17 TC:5 CPT: 74803, 51089 CYTOLOGY STUDY Slides are reviewed. The specimen entirely consists of macrophages. DIAGNOSIS CYTOLOGY Right maxilla cyst fluid for cytology (cytospin and cell block): Consistent with benign cyst contents. SJ:janina 09/15/17 HEADER OPERATION: Right maxillary sinus biopsy PRE-OP DIAGNOSIS: Probable odontogenic cyst TISSUE SUBMITTED: Right maxilla cyst fluid for cytology Signed Pedrosteven Jon 09/15/17 <signature on file> Performed By: #### PFLU #### [facility] [address] [place], [address] PROGRESS Observed: 06/16/2017 Status: COMPLETED Source: [place] 9:54 AM [facility] REPOSITORY HNO ID: [id number] Author: Sulema (Cassi) Older Service: (none) Author Type: Nurse Practitioner Type: Progress Notes Filed: 06/16/2017 11:05 AM Note Text: CC: Patient presents with: acne issues: feels it is hormonal-feels new spot daily Right Hip Pain: flares up when she runs-daughter has hx of hip dysplasia HPI Catherine Tamez is a 36 year old female who presents with hip pain that started a couple months ago. Injury: No injury but is a runner. Runs on treadmill at least 3-7 days a week, 2-3 miles for the past 6 months consistently. Location: anterolateral aspect of the right hip and described as aching. Associated symptoms: no back pain, no radiation of hip pain, and no numbness or tingling noted of the lower extremity. Grating, clicking, feeling like leg is giving out: occasional feels like it is giving out on her after sitting for a while. No low back pain. Aggravated by running Has not taken anything for the pain but reports she has been sick for a week and has not run the entire time, pain has resolved. No history of hip problems. Daughter has hip dysplasia and she was told by the mig tig welder this can be hereditary. Acne: Has had acne for years. Cyst like and painful at times. Located mostly on the lower half of her face. Has tried numerous prescription and OTC treatments without any good results. Seems to be getting worse, new spot every day now. REVIEW OF SYSTEMS See HPI PAST MEDICAL HISTORY Diagnosis Date - Complication of anesthesia FELT LIKE SHE WAS LIGHTHEADED AFTER EPIDURAL - NEGATIVE MEDICAL HISTORY PAST SURGICAL HISTORY Procedure Laterality Date - EAR SURGERY HX 07/2015 - OPEN RX CARPAL FX 2003 Both Wrists ALLERGIES Review of patient's allergies indicates no known allergies. MEDICATIONS traMADol (ULTRAM) 50 mg tablet Take 1 tablet by mouth every 8 hours as needed. FAMILY HISTORY Problem Relation Age of Onset - Colon Cancer Father approx age 56 - Heart Paternal Grandfather - Breast Cancer Mother Diagnosed at 47-48 - Lipids Mother - Cancer Maternal Grandmother BRAIN - Hypertension Mother - Diabetes Mother - Heart Maternal Grandfather - Hypertension Maternal Grandfather - Diabetes Maternal Grandfather Social History Substance Use Topics - Smoking status: Never Smoker - Smokeless tobacco: Never Used - Alcohol use No PHYSICAL EXAM BP 105/76 Pulse 69 Temp 36.8 ?C (98.2 ?F) (Temporal Artery) Resp 16 Wt 67.4 kg (148 lb 9.6 oz) SpO2 100% BMI 23.27 kg/m2 General Appearance: well appearing, in no acute distress, alert Skin: Red, cystic acne to lower half of face Back: No pain to palpation, Full and painless ROM including flexion, extension, lateral side bending and rotation Bilateral hips: Gait and Station WNL No tenderness about the hip Normal stability exam Full - painless flexion/extension full - painless IR/ER Negative straight leg raise ASSESSMENT/PLAN: 1. Right hip pain - ICD9: 719.45, ICD10: M25.551 (primary diagnosis) Differential diagnoses includes overuse, osteoarthritis, and occult fracture - XR HIP GENERAL 3V PELV/AP/LAT RT Discussed conservative treatment including rest, ice and NSAID's Follow-up pending x-ray results 2. Acne vulgaris - ICD9: 706.1, ICD10: L70.0 No contraindications for hormonal contraceptives Start: DROSPIRENONE-ETHINYL ESTRADIOL 3 MG-0.02 MG (24) TABLET - Discussed with patient on how to take OCP's including how to start, using another form of control for the first week, what to do in the case of forgotten/missed doses. Counseled on benefits, risks and possible severe side effects of OCP's. Prescription instructions reviewed with patient as applicable. Potential red flag symptoms discussed with the patient. Reviewed appropriate action plan to take if red flag symptoms occur. Patient agreeable to treatment plan. Sulema Dhaliwal CNP CNOV Observed: 06/16/2017 Status: COMPLETED Source: [place] 9:40 AM [facility] REPOSITORY Office Visit (INTMWS) CATHERINE TAMEZ ([id number]) 1980 F Date Time Provider Department 06/16/17 9:40 AM SULEMA HDALIWAL ([facility]) INTMWS During your visit today, we recorded the following information about you: Temperature Pulse Respiration Blood pressure 98.2 degrees 69/minute 16/minute 105/76 Weight 67.4 kg Sulema Dhaliwal CNP 06/16/2017 11:05 AM Signed CC: Patient presents with: acne issues: feels it is hormonal-feels new spot daily Right Hip Pain: flares up when she runs-daughter has hx of hip dysplasia HPI Catherine Tamez is a 36 year old female who presents with hip pain that started a couple months ago. Injury: No injury but is a runner. Runs on treadmill at least 3-7 days a week, 2-3 miles for the past 6 months consistently. Location: anterolateral aspect of the right hip and described as aching. Associated symptoms: no back pain, no radiation of hip pain, and no numbness or tingling noted of the lower extremity. Grating, clicking, feeling like leg is ANDquot;giving outANDquot;: occasional feels like it is giving out on her after sitting for a while. No low back pain. Aggravated by running Has not taken anything for the pain but reports she has been sick for a week and has not run the entire time, pain has resolved. No history of hip problems. Daughter has hip dysplasia and she was told by the mig tig welder this can be hereditary. Acne: Has had acne for years. Cyst like and painful at times. Located mostly on the lower half of her face. Has tried numerous prescription and OTC treatments without any good results. Seems to be getting worse, new spot every day now. REVIEW OF SYSTEMS See HPI PAST MEDICAL HISTORY Diagnosis Date - Complication of anesthesia FELT LIKE SHE WAS LIGHTHEADED AFTER EPIDURAL - NEGATIVE MEDICAL HISTORY PAST SURGICAL HISTORY Procedure Laterality Date - EAR SURGERY HX 07/2015 - OPEN RX CARPAL FX 2003 Both Wrists ALLERGIES Review of patient's allergies indicates no known allergies. MEDICATIONS traMADol (ULTRAM) 50 mg tablet Take 1 tablet by mouth every 8 hours as needed. FAMILY HISTORY Problem Relation Age of Onset - Colon Cancer Father approx age 56 - Heart Paternal Grandfather - Breast Cancer Mother Diagnosed at 47-48 - Lipids Mother - Cancer Maternal Grandmother BRAIN - Hypertension Mother - Diabetes Mother - Heart Maternal Grandfather - Hypertension Maternal Grandfather - Diabetes Maternal Grandfather Social History Substance Use Topics - Smoking status: Never Smoker - Smokeless tobacco: Never Used - Alcohol use No PHYSICAL EXAM BP 105/76 Pulse 69 Temp 36.8 ?C (98.2 ?F) (Temporal Artery) Resp 16 Wt 67.4 kg (148 lb 9.6 oz) SpO2 100% BMI 23.27 kg/m2 General Appearance: well appearing, in no acute distress, alert Skin: Red, cystic acne to lower half of face Back: No pain to palpation, Full and painless ROM including flexion, extension, lateral side bending and rotation Bilateral hips: Gait and Station WNL No tenderness about the hip Normal stability exam Full - painless flexion/extension full - painless IR/ER Negative straight leg raise ASSESSMENT/PLAN: 1. Right hip pain - ICD9: 719.45, ICD10: M25.551 (primary diagnosis) Differential diagnoses includes overuse, osteoarthritis, and occult fracture - XR HIP GENERAL 3V PELV/AP/LAT RT Discussed conservative treatment including rest, ice and NSAID's Follow-up pending x-ray results 2. Acne vulgaris - ICD9: 706.1, ICD10: L70.0 No contraindications for hormonal contraceptives Start: DROSPIRENONE-ETHINYL ESTRADIOL 3 MG-0.02 MG (24) TABLET - Discussed with patient on how to take OCP's including how to start, using another form of control for the first week, what to do in the case of forgotten/missed doses. Counseled on benefits, risks and possible severe side effects of OCP's. Prescription instructions reviewed with patient as applicable. Potential red flag symptoms discussed with the patient. Reviewed appropriate action plan to take if red flag symptoms occur. Patient agreeable to treatment plan. Sulema Dhaliwal CNP Referring Provider: SELF [200] Allergies As of Date: 06/16/2017 (No Known Allergies) Date Reviewed: 06/16/2017 Reviewed by: Cara Irby Still Photographer - Fully Assessed Reason for Visit: acne issues [Other] Cmt: feels it is hormonal-feels new spot daily Right Hip Pain [1554] Cmt: flares up when she runs-daughter has hx of hip dysplasia Primary Visit Diagnosis:Right hip pain [M25.551] Other Visit Diagnosis:Acne vulgaris [L70.0] Order(s):Drospirenone-Ethinyl Estradiol (EFREN 28) 3-0.02 mg per tabletTake 1 tablet by mouth once daily.Disp: 3 PackageRfl: 0 XR HIP GENERAL 3V PELV/AP/LAT RT [0047872] Order #: [id number] FUTURE Prescriptions as of 06/16/2017 Sig: DROSPIRENONE-ETHINYL ESTRADIO* Take 1 tablet by mouth once d* TRAMADOL 50 MG TABLET Take 1 tablet by mouth every * Problem List As Of Date 06/16/2017 Noted Resolved SUPERVIS NORMAL 1ST PREG [Z34.00] INVALID FOR*06/09/2007 Disruption of Perineal Wound, [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 History of maternal third degree perineal lacer*INVALID FOR*08/22/2015 More... History of anesthesia complications [Z87.898] INVALID FOR*08/22/2015 More... Rubella non-immune status [Z78.9] INVALID FOR*08/22/2015 Supervision of other normal [Z34.80] INVALID FOR*08/22/2015 More... Prescriptions ordered this encounter Disp Refills Start End DROSPIRENONE-ETHINYL ESTRADIOL 3 MG-* 3 Pa* 0 06/16/2017 Route: ORAL Sig: Take 1 tablet by mouth once daily. Encounter Status:Closed by SULEMA DHALIWAL CNP on 06/16/17 SINUS/FACIAL BONE Observed: 05/28/2017 Status: F Source: [place] 10:[address] [facility] REPOSITORY [facility] Imaging Services [address] [place] [address] Sinus/Facial Bone MR#: [id number] Acct: [id number] Name: CATHERINE TAMEZ Rep #: [id number] : 1980 F 36 From: Petar Noble MD PCP: Care Physician, No Primary Status: REG CLI Study: Sinus/Facial Bone Date of Exam: 05/28/17 Exam# [id number] Ordering Dr: Live Boggs MD STUDY: CT MAXILLOFACIAL SINUSES REASON FOR EXAM: Female, 36 years old. Sinusitis and right maxillary pain RADIATION DOSAGE (If Supplied By Facility): CTDIvol = ( 33.06 ) mGy, DLP = ( 887.57 ) mGycm TECHNIQUE: The patient was scanned in a multi detector CT scanner. High resolution axial imaging was performed without the administration of intravenous contrast material. Sagittal and coronal images were reconstructed. Individualized dose optimization techniques were used for this CT. COMPARISON: None. FINDINGS: FRONTAL SINUSES: Normal aeration, without mucosal inflammatory disease. ETHMOIDAL SINUSES: Normal aeration, without mucosal inflammatory disease. MAXILLARY SINUSES: Cyst in the inferior right maxillary sinus. Underlying mucocele cannot be excluded. There is focal cortical interruption of the medial upper anterior maxilla as seen on image 61 of series 4. Erosive changes are noted involving the roots of the right maxillary teeth with adjacent lytic/cystic changes of the maxillary alveolus. SPHENOIDAL SINUSES: Normal aeration, without mucosal inflammatory disease. There is patency of the bilateral maxillary infundibuli with normal uncinate processes, ethmoid bullae, and hiatus semilunaris. Normal bilateral middle turbinates. Normal bilateral inferior turbinates. Normal midline nasal septum. There is patency of the bilateral nasal airways. The visualized osseous structures are normal. The visualized bilateral orbital contents are normal. CT/Sinus/Facial Bone IMPRESSION: Right maxillary sinus disease with associated anterior maxillary cortical interruption and lytic/cystic changes of the alveolus and right maxillary tooth roots. Underlying mucocele or dentigerous cystic disease may be present. Electronically Signed: Petar Noble MD at 4:02 EST Tel , Service support , CC: No Primary Care Physician; Moose Boggs MD Patient Care Nursing Assistant: Signed ALLERGIES ALLERGIES DATE TYPE / CODE NAME / CODE REACTION SEVERITY SOURCE 03/24/2018 Drug No Known Unknown [place] [facility] Allergy/416 Allergies/E86647 [facility] 994153(SNOM 0388(RXNORM) Repository ED CT) Drug NO KNOWN [facility] Class/40596 ALLERGIES Main [place] 1003(SNOMED Repository CT) ENCOUNTERS ENCOUNTERS ADMIT/DISCHARGE ACCOUNT ADMITTING ENCOUNTER LOCATION SOURCE NUMBER CLASS 05/08/2018 [id number] Ambulatory [facility] Hospital ing:LAB Repository 04/12/2018 [id number] Ambulatory [facility] ing:LAB Repository 03/24/2018/03/24/20 [id number] Ambulatory [address] ing:SDCRoom: Repository AC18 03/07/2018 [id number] Ambulatory [facility] ing:LAB Repository 02/10/2018/02/14/20 [id number] Ambulatory [address] Repository 02/06/2018 [id number] Ambulatory [facility] ing:LAB Repository 01/03/2018 [id number] [facility] ing:LAB Repository 12/08/2017/12/09/19 [id number] Ambulatory [address] Repository 10/31/2017/11/02/19 [id number] Ambulatory [address] Repository 09/14/2017 [id number] [facility] ing:LABSPEC Repository 06/16/2017/06/18/19 [id number] Ambulatory [address] Repository 05/28/2017 [id number] [facility] ing:CT Repository PAYERS PAYERS ENCOUNTER GUARANTOR PAYER SUBSCRIBER SOURCE 05/08/2018 CATHERINE [id number] Primary LUCAS R Robert [place] Insurance:[facility] [facility]: [facility] icy Number: [id number], [place] [address]Ien: [id number] Repository Date:0496-33-98[address], [place] [address]RU: 05/08/2018 Secondary NOT GIVENUNK Robert Insurance:SELF PAY [facility] Number: Effective Repository Date:2018-05-08 04/12/2018 CATHERINE [id number] Primary LUCAS R [place] [facility] icy Number: [id number], [place] [address]Vaz: [id number] Repository Date:4145-98-45[address] ) [address], [place] [address]LX: 04/12/2018 Secondary NOT GIVENUNK Robert Insurance:SELF PAY [facility] Number: Effective Repository Date:2018-04-12 03/24/2018 CATHERINE [id number] Primary LUCAS R Robert [place] Insurance:AULTCAREPol MILLERDOB: Community RDFREDERCARLIE icy Number: [id number], [place] [address]Frd: [id number] Repository Date:6037-93-40[address] () [address], [place] [address]QD: 03/24/2018 Secondary NOT GIVENUNK Robert Insurance:SELF PAY [facility] Number: Effective Repository Date:2018-02-23 03/07/2018 CATHERINE [id number] Primary LUCAS R Robert [place] Insurance:AULTCAREPol MILLERDOB: Community RDJOSE icy Number: [id number], [place] [address]Idr: [id number] Repository Date:1833-42-14[address] () [address], [place] [address]ZX: 03/07/2018 Secondary NOT GIVENUNK [place] Insurance:SELF PAY [facility] Number: Effective Repository Date:2018-03-07 02/06/2018 CATHERINE [id number] Primary LUCAS R [place] Insurance:AULTCAREPol MILLERDOB: [facility] Number: [id number], [place] [address]Lhv: [id number] Repository Date:7630-16-51[address] () [address], [place] [address]QY: 02/06/2018 Secondary NOT GIVENUNK [place] Insurance:SELF PAY [facility] Number: Effective Repository Date:2018-02-06 01/03/2018 CATHERINE [id number] Primary Lucas R [place] Insurance:AULTCAREPol MillerDOB: Community [place] icy Number: [id number], [place] [address]Bfo: [id number] Repository Date:2958-66-65[address] () [address] [address]UN: 01/03/2018 Secondary NOT GIVENUNK Robert Insurance:SELF PAY [facility] Number: Effective Repository Date:2018-01-02 09/14/2017 CATHERINE Mike [id number] Primary Lucas R Robert [place] Insurance:AULTCAREPol MillerDOB: Community [place] icy Number: [id number], [place] [address]Tdq: [id number] Repository Date:3597-02-29[address] () [address], [place] [address]YN: 09/14/2017 Secondary NOT GIVENUNK [place] Insurance:SELF PAY [facility] Number: Effective Repository Date:2017-09-14 05/28/2017 CATHERINE [id number] Primary Lucas R [place] Insurance:AULTCAREPol MillerDOB: Community [place] icy Number: [id number], [place] [address]Wdb: [id number] Repository Date:9912-60-91[address] () [address], [place] [address]LP: 05/28/2017 Secondary NOT GIVENUNK [place] Insurance:SELF PAY [facility] Number: Effective Repository Date:2017-05-23
== END ==
PROVIDERS: Family Provider Internal Medicine; PCP Internal Medicine; Referring Provider Dermatology; Visit Provider Dermatology
DX: Z79.899 Other long term (current) drug therapy (principal); L70.0 Acne vulgaris; L23.3 Allergic contact dermatitis due to drugs in contact with skin
CPT/HCPCS: 36415; 80061; 84450; 84460; 84703

== ENCOUNTER → 2018-06-13 11:35 | Outpatient (CLI) | payer OTHER, SELFPAY ==
[2018-03-24 13:12] VITALS: BMI 24.1
[2018-06-13 12:58] LABS: Internal QC Validated? YES +Cl - CLEAR BKGD; Pregnancy, Urine Negative Negative
== END ==
PROVIDERS: Family Provider Internal Medicine; PCP Internal Medicine; Referring Provider Dermatology; Visit Provider Dermatology
DX: Z79.899 Other long term (current) drug therapy (principal); L70.0 Acne vulgaris; L23.3 Allergic contact dermatitis due to drugs in contact with skin
CPT/HCPCS: 81025

== ENCOUNTER → 2018-07-11 11:25 | Outpatient (CLI) | payer OTHER, SELFPAY ==
[2018-03-24 13:12] VITALS: BMI 24.1
[2018-07-11 12:21] LABS: Internal QC Validated? YES +Cl - CLEAR BKGD; Pregnancy, Urine Negative Negative
== END ==
PROVIDERS: Family Provider Internal Medicine; PCP Internal Medicine; Referring Provider Dermatology; Visit Provider Dermatology
DX: Z79.899 Other long term (current) drug therapy (principal); L70.0 Acne vulgaris; L23.3 Allergic contact dermatitis due to drugs in contact with skin
CPT/HCPCS: 81025

== ENCOUNTER → 2018-08-08 11:23 | Outpatient (CLI) | payer OTHER, SELFPAY ==
[2018-03-24 13:12] VITALS: BMI 24.1
[2018-08-08 14:19] LABS: Internal QC Validated? YES +Cl - CLEAR BKGD; Pregnancy, Urine Negative Negative
== END ==
PROVIDERS: Family Provider Internal Medicine; PCP Internal Medicine; Referring Provider Dermatology; Visit Provider Dermatology
DX: Z79.899 Other long term (current) drug therapy (principal); L70.0 Acne vulgaris; L23.3 Allergic contact dermatitis due to drugs in contact with skin
CPT/HCPCS: 81025

== ENCOUNTER → 2018-09-21 14:47 | Outpatient (CLI) | payer OTHER, SELFPAY ==
[2018-03-24 13:12] VITALS: BMI 24.1
[2018-09-21 16:37] LABS: Internal QC Validated? YES +Cl - CLEAR BKGD; Pregnancy, Urine Negative Negative
== END ==
PROVIDERS: Family Provider Internal Medicine; PCP Internal Medicine; Referring Provider Dermatology; Visit Provider Dermatology
DX: Z79.899 Other long term (current) drug therapy (principal); L70.0 Acne vulgaris; L23.3 Allergic contact dermatitis due to drugs in contact with skin; L71.8 Other rosacea
CPT/HCPCS: 81025

== ENCOUNTER → 2019-05-15 14:21 | Outpatient (CLI) | payer OTHER, SELFPAY ==
[2018-03-24 13:12] VITALS: BMI 24.1
[2019-05-15 15:38] LABS: Hematocrit 41.6 % (37-47); Hemoglobin 14.3 g/dL (12.0-15.0); Mean Corp Hgb Conc 34.4 g/dL (32-36); Mean Corpuscular Hgb 31.9 pg (27.0-32.0); Mean Corpuscular Volume 92.9 fL (81-99); Mean Platelet Vol. 9.6 fl (6.2-12.0); Platelet Count 249 K/mm3 (150-450); RBC Distribution Width CV 12.5 % (11.6-14.6); RBC Distribution Width SD 42.5 fl (35.1-43.9); Red Blood Count 4.48 M/mm3 (4.2-5.4)
[2019-05-15 15:39] LABS: Vitamin B12 361 pg/mL (211-911); Vitamin D,25 Hydroxy 30.2 ng/mL (29.95-100.01)
[2019-05-15 16:12] LABS: Ferritin 39 ng/mL (8-252); Iron 131 ug/dL (50-170); Iron Binding Capacity,Total 240 ug/dL (250-450); PERCENT IRON SATURATION 54.6 % (15.0-55.0); T4 Free Direct 0.82 ng/dL (0.76-1.46)
[2019-05-20 15:34] LABS: Vitamin D 1,25-Dihydroxy 48.4
[2019-05-21 09:07] LABS: DHEA Sulfate 119.1 ug/dL (57.3-279.2); Testosterone, % Free 1.71 % (0.50-2.80); Testosterone, Free 0.46 ng/dL (0.10-0.85); Testosterone, Total 27 ng/dL (8-48)
[2019-05-21 11:55] LABS: Androstenedione 59 ng/dL (41-262); Sex Hormone-binding Globulin 75.2 nmol/L (24.6-122.0); Zinc, Plasma or Serum 72 ug/dL (56-134)
== END ==
PROVIDERS: PCP Internal Medicine; Referring Provider Dermatology; Visit Provider Dermatology
DX: L65.0 Telogen effluvium (principal); L64.8 Other androgenic alopecia
CPT/HCPCS: 36415; 82157; 82306; 82607; 82627; 82652; 82728; 82746; 83540; 83550; 84270; 84402; 84403; 84439; 84443; 84630; 85027; 86038; 82626